=== PATIENT | male | born 1980 | race Caucasian/White ===

== ENCOUNTER 2018-09-22 07:49 | Outpatient (CLI) | payer OTHER ==
--- NOTE | 2018-09-22 09:47 | CT ---
CT LUMBAR SPINE WITHOUT CONTRAST: Date: 09/22/18 HISTORY: Low back pain x5 years. Forklift accident 5 years ago. Possible bilateral facet fracture at L5. FINDINGS: Five lumbar-type vertebral bodies. Lumbar spine vertebral body height is maintained. There is no frac ture. No spondylolisthesis. No spondylolysis. No retroperitoneal mass, lymphadenopathy, or hematoma. Symmetric attenuation of the psoas muscles. Vi sualized solid organs are unremarkable. Mild atherosclerosis of a nonaneurysmal aorta. Coronal reformatted images demonstrate appropriate alignment of the spinous processes and transverse process. SI joints are unremarkable. Limited evaluation of the contents of the central spinal canal and the neural foramina due to techniq ue. T11-T12 and T12-L1: No significant central canal stenosis or neural foraminal narrowing. L1-L2: No significant central canal stenosis or neural foraminal narrowing. L2-L3: No significant central canal stenosis or neural foraminal narrowing. L3-L4: There appears to be a generalized disc bulge which results in mild central canal stenosis. Ne ural foramina are patent. L4-L5: There is a generalized disc bulge with a central and right subarticular protrusion. There is presumed mass effect upon the traversing right L5 nerve root. Right neural foramen and left neural fo ramen are minimally narrowed. L5-S1: Minimal central disc protrusion. No significant central canal stenosis. Neural foramina are m ildly narrowed bilaterally. IMPRESSION: 1. No high grade central canal stenosis or high grade foraminal narrowing. 2. There is some mass effect upon the right subarticular zone at L4-L5 with presumed mass effect and obscuration traversing right L5 nerve root. Better interrogation with MRI may be beneficial. POS: MAIDA
== END 2018-09-22 07:50 | disposition home or self-care (01) ==
LOC: TBSIIMAG 07:49
PROVIDERS: ATTEND Neurological Surgery
DX: M54.5 Low back pain (principal); M48.8X6 Other specified spondylopathies, lumbar region
CPT/HCPCS: 72131

== ENCOUNTER 2018-12-12 12:40 | Outpatient (CLI) | payer OTHER ==
--- NOTE | 2018-12-12 13:42 | MRI ---
Lumbar spine MRI: 12/12/2018 COMPARISON: None HISTORY: Low back pain TECHNIQUE: Multiplanar multisequence MR imaging of the lumbar spine obtained without contrast FINDINGS: The sagittal STIR imaging demonstrates no focal area of osseous marrow edema. Lumbar vertebral body height and alignment appears normal within the lumbar spine. On the basis of 5 lumbar type vertebral bodies, the conus medullaris terminates at the L1 level. T12-L1: Unremarkable L1-2: Unremarkable L2-3: Unremarkable L3-4: Unremarkable L4-5: Mild disc space narrowing and disc desiccation. Small central disc protrusion. No central canal stenosis. Mild bilateral facet hypertrophy. No significant neural foraminal stenosis on either side. L5-S1: Unremarkable. Imaged retroperitoneal structures appear grossly unremarkable. IMPRESSION: Mild disc disease at L4-5. No significant central canal or neural foraminal stenosis.
== END 2018-12-12 12:41 | disposition home or self-care (01) ==
LOC: TBSIIMAG 12:40
PROVIDERS: ATTEND Neurological Surgery
DX: M54.5 Low back pain (principal); M51.16 Intervertebral disc disorders with radiculopathy, lumbar region
CPT/HCPCS: 72148

== ENCOUNTER 2021-04-04 12:27 | Emergency (ER) | payer OTHER, SELFPAY ==
[2021-04-04 14:56] LABS: #Lymphocytes 0.6 thou/uL (1.20-3.40); #Monocytes 0.2 thou/uL (0.11-0.59); #Neutrophils 7.8 thou/uL (1.40-6.50); %Basophils 0.1 % (0.0-1.0); %Eosinophils 0.1 % (0.0-10.0); %Lymphocytes 7.1 % (21.0-51.0); %Neutrophils 90.7 % (42.0-75.0); Hemoglobin 14.9 g/dL (14.0-18.0); Mean Corpuscular HGB CONC 34.1 g/dL (32.0-36.0); Mean Corpuscular Hemoglobin 30.7 pg (27.0-31.0); Mean Platelet Volume 8.1 fL (7.4-10.4); Platelet Count 145 thou/uL (130-400); RBC Distribution Width 11.6 % (11.5-14.5); Red Blood Cell (RBC) Count 4.83 mill/uL (4.70-6.10); White Blood Cell (WBC) Count 8.6 thou/uL (4.8-10.8)
[2021-04-04 15:23] LABS: ALT (SGPT) 23 U/L (8-55); AST (SGOT) 26 U/L (5-34); Albumin 3.7 g/dL (3.5-5.0); Alkaline Phosphatase 54 U/L (40-110); Anion Gap 15 mmol/L (10-20); BUN (Urea Nitrogen) 12 mg/dL (8.9-20.6); Bilirubin, Total 0.4 mg/dL (0.2-1.2); Calc. Creatinine Clearance 0 mL/min (70-130); Calcium 8.8 mg/dL (7.8-10.44); Carbon Dioxide 21 mmol/L (22-29); Chloride 98 mmol/L (98-107); Globulin 3.5 g/dL (2.4-3.5); Glucose 372 mg/dL (70-105); Potassium 4.1 mmol/L (3.5-5.1); Protein, Total 7.2 g/dL (6.0-8.3); Sodium 130 mmol/L (136-145)
[2021-04-04] MEDS ORDERED: Ketorolac Tromethamine 30 MG/ML VIAL ONE (16:13)
== END 2021-04-04 16:40 | disposition home or self-care (01) ==
LOC: ERS 12:27
DX: U07.1 COVID-19 (principal)
CPT/HCPCS: 71045; 80053; 84484; 85025; 93005; 96372; J1885

== ENCOUNTER 2021-04-10 01:34 | Inpatient (IN) | payer SELFPAY ==
[2021-04-10] MEDS ORDERED: Ondansetron PF 4 MG/2 ML Vial IVP PRN (05:30)
[2021-04-10] MEDS ORDERED: Ondansetron ODT 4 MG TAB SL PRN (05:30)
[2021-04-10] MEDS ORDERED: Acetaminophen 325 MG TAB PO PRN (05:30)
[2021-04-10] MEDS ORDERED: Senokot S 8.6-50 MG TAB PO PRN (10:10)
[2021-04-10] MEDS ORDERED: Dexamethasone 10 MG in Sodium Chloride 0.9% 50 ML IVPB SCH ×2 (10:16→21:00)
[2021-04-10] MEDS ORDERED: Dextrose 5% in Water 1,000 ML IV PRN (10:44)
[2021-04-10] MEDS ORDERED: Dextrose 50% Abboject 50 ML SYRINGE SLOW IVP PRN (10:44)
[2021-04-10] MEDS ORDERED: Dexamethasone 10 MG/ML VIAL SLOW IVP SCH (11:30)
[2021-04-10] MEDS ORDERED: Dexamethasone 10 MG/ML VIAL ONE (11:38)
[2021-04-10] MEDS ORDERED: BARICITINIB 2 MG TAB PO SCH (13:30)
[2021-04-10 15:22] VITALS: BMI 38.9
[2021-04-10] MEDS ORDERED: Enoxaparin Sodium 120 MG/0.8 ML SYRINGE SC SCH (15:45)
[2021-04-10] MEDS ORDERED: Enoxaparin Sodium 80 MG/0.8 ML SYRINGE ONE (16:46)
[2021-04-10] MEDS ORDERED: Enoxaparin Sodium 40 MG/0.4 ML SYRINGE ONE (16:46)
[2021-04-10] MEDS ORDERED: Ondansetron ODT 4 MG TAB PO PRN (17:18)
[2021-04-10] MEDS ORDERED: Lantus 1000 UNITS/10 ML VIAL SC SCH (21:00)
[2021-04-10] MEDS: Doxycycline 100 MG CAP PO SCH (21:23)
[2021-04-10] MEDS: Colchicine 0.6 MG TAB PO SCH (21:23)
[2021-04-10] MEDS: Dexamethasone 10 MG/ML VIAL SLOW IVP SCH (21:23)
[2021-04-10] MEDS: Enoxaparin Sodium 120 MG/0.8 ML SYRINGE SC SCH (21:24)
[2021-04-10] MEDS: Ivermectin 3 MG TAB PO SCH (21:25)
[2021-04-10] MEDS: HumaLOG 300 UNITS/3 ML VIAL SC PRN (21:43)
[2021-04-11] MEDS: HumaLOG 300 UNITS/3 ML VIAL SC PRN ×4 (05:31→20:32)
[2021-04-11 06:08] LABS: #Eosinphils 0.1 thou/uL (0.0-0.7); #Lymphocytes 0.5 thou/uL (1.20-3.40); #Monocytes 0.3 thou/uL (0.11-0.59); #Neutrophils 6.5 thou/uL (1.40-6.50); %Eosinophils 1.5 % (0.0-10.0); %Lymphocytes 6.7 % (21.0-51.0); %Monocytes 4.2 % (0.0-10.0); %Neutrophils 87.7 % (42.0-75.0); Hemoglobin 13.6 g/dL (14.0-18.0); Mean Corpuscular HGB CONC 35.8 g/dL (32.0-36.0); Mean Corpuscular Volume 89.6 fL (78.0-98.0); Mean Platelet Volume 8.2 fL (7.4-10.4); Platelet Count 151 thou/uL (130-400); RBC Distribution Width 11.7 % (11.5-14.5); Red Blood Cell (RBC) Count 4.26 mill/uL (4.70-6.10); White Blood Cell (WBC) Count 7.4 thou/uL (4.8-10.8)
[2021-04-11 06:32] LABS: ALT (SGPT) 17 U/L (8-55); AST (SGOT) 15 U/L (5-34); Albumin 3.2 g/dL (3.5-5.0); Alkaline Phosphatase 57 U/L (40-110); Anion Gap 15 mmol/L (10-20); BUN (Urea Nitrogen) 17 mg/dL (8.9-20.6); Bilirubin, Total 0.4 mg/dL (0.2-1.2); Calc. Creatinine Clearance 172 mL/min (70-130); Calcium 8.9 mg/dL (7.8-10.44); Carbon Dioxide 22 mmol/L (22-29); Cardiac Risk 7.9 (Less than 4.5); Chloride 101 mmol/L (98-107); Cholesterol 245 mg/dl (< 200 Desired); Globulin 3.6 g/dL (2.4-3.5); Glucose 519 mg/dL (70-105); HDL Cholesterol 31 mg/dL (>60 Neg Risk); LDL Cholesterol, Calculated 154 mg/dL; Potassium 4.7 mmol/L (3.5-5.1); Protein, Total 6.8 g/dL (6.0-8.3); Sodium 133 mmol/L (136-145); Triglycerides 300 mg/dL (Less than 150)
[2021-04-11] MEDS ORDERED: metFORMIN 500 MG TAB PO SCH (08:00)
[2021-04-11] MEDS ORDERED: Albuterol Sulfate 2.5 mg/3 ml Neb NEB PRN (08:32)
[2021-04-11] MEDS: Doxycycline 100 MG CAP PO SCH ×2 (08:47→20:20)
[2021-04-11] MEDS: Ascorbic Acid 500 mg Chewable Tablet PO SCH (08:47)
[2021-04-11] MEDS: Colchicine 0.6 MG TAB PO SCH ×2 (08:48→20:19)
[2021-04-11] MEDS: BARICITINIB 2 MG TAB PO SCH (08:48)
[2021-04-11] MEDS: Zinc Sulfate 220 MG CAP PO SCH (08:49)
[2021-04-11] MEDS: Ivermectin 3 MG TAB PO SCH ×2 (08:49→20:20)
[2021-04-11] MEDS: Enoxaparin Sodium 120 MG/0.8 ML SYRINGE SC SCH ×2 (08:53→20:20)
[2021-04-11] MEDS: Dexamethasone 10 MG/ML VIAL SLOW IVP SCH ×2 (08:53→20:20)
[2021-04-11] MEDS ORDERED: Pantoprazole 40 MG VIAL IVP SCH (09:00)
[2021-04-11] MEDS: Lantus 1000 UNITS/10 ML VIAL SC SCH (21:00)
[2021-04-12] MEDS: HumaLOG 300 UNITS/3 ML VIAL SC PRN ×4 (05:53→21:00)
[2021-04-12 06:37] LABS: #Eosinphils 0.1 thou/uL (0.0-0.7); #Lymphocytes 0.7 thou/uL (1.20-3.40); #Monocytes 0.5 thou/uL (0.11-0.59); %Basophils 0.3 % (0.0-1.0); %Eosinophils 0.7 % (0.0-10.0); %Lymphocytes 8.7 % (21.0-51.0); %Neutrophils 84.4 % (42.0-75.0); Hemoglobin 13.9 g/dL (14.0-18.0); Mean Corpuscular HGB CONC 35.4 g/dL (32.0-36.0); Mean Corpuscular Hemoglobin 31.8 pg (27.0-31.0); Mean Corpuscular Volume 89.8 fL (78.0-98.0); Mean Platelet Volume 8.9 fL (7.4-10.4); Platelet Count 160 thou/uL (130-400); RBC Distribution Width 11.7 % (11.5-14.5); Red Blood Cell (RBC) Count 4.38 mill/uL (4.70-6.10); White Blood Cell (WBC) Count 8.2 thou/uL (4.8-10.8)
[2021-04-12 06:58] LABS: ALT (SGPT) 16 U/L (8-55); AST (SGOT) 11 U/L (5-34); Albumin 3.2 g/dL (3.5-5.0); Alkaline Phosphatase 54 U/L (40-110); Anion Gap 15 mmol/L (10-20); BUN (Urea Nitrogen) 27 mg/dL (8.9-20.6); Bilirubin, Total 0.4 mg/dL (0.2-1.2); Calc. Creatinine Clearance 197 mL/min (70-130); Calcium 8.9 mg/dL (7.8-10.44); Carbon Dioxide 24 mmol/L (22-29); Chloride 101 mmol/L (98-107); Globulin 3.3 g/dL (2.4-3.5); Glucose 393 mg/dL (70-105); Potassium 4.6 mmol/L (3.5-5.1); Protein, Total 6.5 g/dL (6.0-8.3); Sodium 135 mmol/L (136-145)
[2021-04-12] MEDS: Colchicine 0.6 MG TAB PO SCH ×2 (08:50→20:58)
[2021-04-12] MEDS: Ivermectin 3 MG TAB PO SCH ×2 (08:50→20:59)
[2021-04-12] MEDS: Zinc Sulfate 220 MG CAP PO SCH (08:50)
[2021-04-12] MEDS: Doxycycline 100 MG CAP PO SCH ×2 (08:50→20:59)
[2021-04-12] MEDS: Ascorbic Acid 500 mg Chewable Tablet PO SCH (08:50)
[2021-04-12] MEDS: Dexamethasone 10 MG/ML VIAL SLOW IVP SCH ×2 (08:50→20:59)
[2021-04-12] MEDS: Enoxaparin Sodium 120 MG/0.8 ML SYRINGE SC SCH ×2 (08:50→20:59)
[2021-04-12] MEDS: BARICITINIB 2 MG TAB PO SCH (08:50)
[2021-04-12] MEDS ORDERED: Lantus 1000 UNITS/10 ML VIAL SC STA (16:03)
[2021-04-12] MEDS ORDERED: REMDESIVIR 200 MG in Sodium Chloride 0.9% 250 ML 210 ML IV SCH (16:45)
[2021-04-12] MEDS: Lantus 1000 UNITS/10 ML VIAL SC SCH (20:59)
[2021-04-13 06:05] LABS: #Lymphocytes 0.6 thou/uL (1.20-3.40); #Monocytes 0.5 thou/uL (0.11-0.59); #Neutrophils 7.2 thou/uL (1.40-6.50); %Eosinophils 0.3 % (0.0-10.0); %Lymphocytes 7.1 % (21.0-51.0); %Monocytes 5.9 % (0.0-10.0); %Neutrophils 86.7 % (42.0-75.0); Hemoglobin 14.1 g/dL (14.0-18.0); Mean Corpuscular Hemoglobin 31.2 pg (27.0-31.0); Mean Corpuscular Volume 89.2 fL (78.0-98.0); Platelet Count 165 thou/uL (130-400); RBC Distribution Width 11.6 % (11.5-14.5); Red Blood Cell (RBC) Count 4.52 mill/uL (4.70-6.10); White Blood Cell (WBC) Count 8.3 thou/uL (4.8-10.8)
[2021-04-13] MEDS: HumaLOG 300 UNITS/3 ML VIAL SC PRN ×4 (06:05→20:56)
[2021-04-13 06:28] LABS: Albumin 3.3 g/dL (3.5-5.0); Anion Gap 14 mmol/L (10-20); BUN (Urea Nitrogen) 21 mg/dL (8.9-20.6); Bilirubin, Total 0.4 mg/dL (0.2-1.2); Calc. Creatinine Clearance 188 mL/min (70-130); Carbon Dioxide 22 mmol/L (22-29); Chloride 100 mmol/L (98-107); Glucose 472 mg/dL (70-105); Potassium 4.4 mmol/L (3.5-5.1); Protein, Total 6.6 g/dL (6.0-8.3); Sodium 132 mmol/L (136-145)
[2021-04-13 06:29] LABS: ALT (SGPT) 15 U/L (8-55); AST (SGOT) 11 U/L (5-34); Alkaline Phosphatase 58 U/L (40-110); Globulin 3.3 g/dL (2.4-3.5)
[2021-04-13] MEDS ORDERED: Lantus 1000 UNITS/10 ML VIAL SC SCH (09:00)
[2021-04-13] MEDS: Doxycycline 100 MG CAP PO SCH ×2 (09:12→20:55)
[2021-04-13] MEDS: Zinc Sulfate 220 MG CAP PO SCH (09:12)
[2021-04-13] MEDS: Colchicine 0.6 MG TAB PO SCH ×2 (09:12→20:56)
[2021-04-13] MEDS: Ivermectin 3 MG TAB PO SCH ×2 (09:12→20:55)
[2021-04-13] MEDS: Apixaban 5 MG TAB PO SCH ×2 (09:12→20:56)
[2021-04-13] MEDS: BARICITINIB 2 MG TAB PO SCH (09:12)
[2021-04-13] MEDS: Ascorbic Acid 500 mg Chewable Tablet PO SCH (09:12)
[2021-04-13] MEDS: Dexamethasone 10 MG/ML VIAL SLOW IVP SCH (09:12)
[2021-04-13] MEDS: Lantus 1000 UNITS/10 ML VIAL SC SCH ×2 (09:13→20:56)
[2021-04-13] MEDS ORDERED: REMDESIVIR 100 MG in Sodium Chloride 0.9% 250 ML 230 ML IV SCH (16:45)
[2021-04-13] MEDS: Melatonin 3 MG TAB PO PRN (20:56)
[2021-04-14] MEDS: HumaLOG 300 UNITS/3 ML VIAL SC PRN ×4 (06:34→21:42)
[2021-04-14 07:27] LABS: #Eosinphils 0.1 thou/uL (0.0-0.7); #Lymphocytes 1.4 thou/uL (1.20-3.40); #Monocytes 0.6 thou/uL (0.11-0.59); #Neutrophils 5.9 thou/uL (1.40-6.50); %Basophils 0.1 % (0.0-1.0); %Lymphocytes 17.5 % (21.0-51.0); %Monocytes 7.4 % (0.0-10.0); %Neutrophils 74.1 % (42.0-75.0); Hemoglobin 13.7 g/dL (14.0-18.0); Mean Corpuscular HGB CONC 34.9 g/dL (32.0-36.0); Mean Corpuscular Hemoglobin 31.2 pg (27.0-31.0); Mean Corpuscular Volume 89.4 fL (78.0-98.0); Mean Platelet Volume 8.6 fL (7.4-10.4); Platelet Count 158 thou/uL (130-400); RBC Distribution Width 11.6 % (11.5-14.5); Red Blood Cell (RBC) Count 4.39 mill/uL (4.70-6.10); White Blood Cell (WBC) Count 7.9 thou/uL (4.8-10.8)
[2021-04-14 07:41] LABS: Anion Gap 14 mmol/L (10-20); BUN (Urea Nitrogen) 25 mg/dL (8.9-20.6); Calc. Creatinine Clearance 192 mL/min (70-130); Calcium 8.8 mg/dL (7.8-10.44); Carbon Dioxide 23 mmol/L (22-29); Chloride 101 mmol/L (98-107); Glucose 370 mg/dL (70-105); Potassium 4.1 mmol/L (3.5-5.1); Sodium 134 mmol/L (136-145)
[2021-04-14] MEDS: Doxycycline 100 MG CAP PO SCH ×2 (08:31→21:40)
[2021-04-14] MEDS: Apixaban 5 MG TAB PO SCH ×2 (08:31→21:40)
[2021-04-14] MEDS: Ascorbic Acid 500 mg Chewable Tablet PO SCH (08:31)
[2021-04-14] MEDS: Dexamethasone 10 MG/ML VIAL SLOW IVP SCH (08:31)
[2021-04-14] MEDS: Ivermectin 3 MG TAB PO SCH ×2 (08:32→21:42)
[2021-04-14] MEDS: Colchicine 0.6 MG TAB PO SCH ×3 (08:32→21:40)
[2021-04-14] MEDS: Zinc Sulfate 220 MG CAP PO SCH (08:32)
[2021-04-14] MEDS: BARICITINIB 2 MG TAB PO SCH (08:32)
[2021-04-14] MEDS: Lantus 1000 UNITS/10 ML VIAL SC SCH ×2 (08:33→21:40)
[2021-04-14] MEDS: metFORMIN 500 MG TAB PO SCH ×2 (15:28→21:40)
[2021-04-14] MEDS: glipiZIDE 5 MG TAB PO SCH (17:06)
[2021-04-14] MEDS ORDERED: HumuLIN 70/30 (300 UNITS/3 ML VIAL) SC SCH (21:00)
[2021-04-14] MEDS: Melatonin 3 MG TAB PO PRN (21:39)
[2021-04-15] MEDS: HumaLOG 300 UNITS/3 ML VIAL SC PRN ×3 (06:29→20:36)
[2021-04-15] MEDS: glipiZIDE 5 MG TAB PO SCH ×2 (06:30→15:10)
[2021-04-15 06:52] LABS: Anion Gap 13 mmol/L (10-20); BUN (Urea Nitrogen) 25 mg/dL (8.9-20.6); Calc. Creatinine Clearance 213 mL/min (70-130); Calcium 8.5 mg/dL (7.8-10.44); Carbon Dioxide 25 mmol/L (22-29); Chloride 104 mmol/L (98-107); Glucose 212 mg/dL (70-105); Potassium 3.7 mmol/L (3.5-5.1); Sodium 138 mmol/L (136-145)
[2021-04-15] MEDS: BARICITINIB 2 MG TAB PO SCH (08:32)
[2021-04-15] MEDS: Doxycycline 100 MG CAP PO SCH ×2 (08:32→20:34)
[2021-04-15] MEDS: Dexamethasone 10 MG/ML VIAL SLOW IVP SCH (08:32)
[2021-04-15] MEDS: Apixaban 5 MG TAB PO SCH ×2 (08:32→20:34)
[2021-04-15] MEDS: metFORMIN 500 MG TAB PO SCH ×3 (08:32→20:34)
[2021-04-15] MEDS: Colchicine 0.6 MG TAB PO SCH ×2 (08:33→20:34)
[2021-04-15] MEDS: Ascorbic Acid 500 mg Chewable Tablet PO SCH (08:33)
[2021-04-15] MEDS: Ivermectin 3 MG TAB PO SCH ×2 (08:33→20:34)
[2021-04-15] MEDS: Lantus 1000 UNITS/10 ML VIAL SC SCH ×2 (08:33→20:36)
[2021-04-15] MEDS: Zinc Sulfate 220 MG CAP PO SCH (08:33)
[2021-04-15] MEDS: Guaifenesin DM 100-10/5 ML UDCUP PO PRN (11:51)
[2021-04-15] MEDS: Melatonin 3 MG TAB PO PRN (22:18)
[2021-04-16] MEDS: HumaLOG 300 UNITS/3 ML VIAL SC PRN ×3 (05:55→17:14)
[2021-04-16] MEDS: Guaifenesin DM 100-10/5 ML UDCUP PO PRN ×5 (05:55→20:12)
[2021-04-16 07:27] LABS: Anion Gap 12 mmol/L (10-20); Calc. Creatinine Clearance 213 mL/min (70-130); Carbon Dioxide 28 mmol/L (22-29); Chloride 100 mmol/L (98-107); Glucose 184 mg/dL (70-105); Potassium 4.1 mmol/L (3.5-5.1); Sodium 136 mmol/L (136-145)
[2021-04-16 07:53] LABS: BUN (Urea Nitrogen) 22 mg/dL (8.9-20.6)
[2021-04-16] MEDS: Ivermectin 3 MG TAB PO SCH ×2 (08:06→19:56)
[2021-04-16] MEDS: Dexamethasone 10 MG/ML VIAL SLOW IVP SCH (08:06)
[2021-04-16] MEDS: Colchicine 0.6 MG TAB PO SCH ×2 (08:06→19:56)
[2021-04-16] MEDS: Ascorbic Acid 500 mg Chewable Tablet PO SCH (08:07)
[2021-04-16] MEDS: BARICITINIB 2 MG TAB PO SCH (08:07)
[2021-04-16] MEDS: glipiZIDE 5 MG TAB PO SCH ×2 (08:07→17:14)
[2021-04-16] MEDS: Doxycycline 100 MG CAP PO SCH ×2 (08:07→19:56)
[2021-04-16] MEDS: metFORMIN 500 MG TAB PO SCH ×2 (08:08→17:14)
[2021-04-16] MEDS: Zinc Sulfate 220 MG CAP PO SCH (08:09)
[2021-04-16] MEDS: Apixaban 5 MG TAB PO SCH ×2 (08:10→19:57)
[2021-04-16] MEDS: Lantus 1000 UNITS/10 ML VIAL SC SCH ×2 (08:11→19:55)
[2021-04-16] MEDS: Glimepiride 2 MG TAB PO SCH (08:13)
[2021-04-16] MEDS: Melatonin 3 MG TAB PO PRN (22:13)
[2021-04-17] MEDS: Guaifenesin DM 100-10/5 ML UDCUP PO PRN (04:43)
[2021-04-17] MEDS: HumaLOG 300 UNITS/3 ML VIAL SC PRN (04:43)
[2021-04-17 08:03] VITALS: TEMP 97.8
[2021-04-17] MEDS: Ivermectin 3 MG TAB PO SCH (09:07)
[2021-04-17] MEDS: Zinc Sulfate 220 MG CAP PO SCH (09:07)
[2021-04-17] MEDS: Doxycycline 100 MG CAP PO SCH (09:07)
[2021-04-17] MEDS: Colchicine 0.6 MG TAB PO SCH (09:07)
[2021-04-17] MEDS: glipiZIDE 5 MG TAB PO SCH (09:07)
[2021-04-17] MEDS: BARICITINIB 2 MG TAB PO SCH (09:07)
[2021-04-17] MEDS: Dexamethasone 10 MG/ML VIAL SLOW IVP SCH (09:07)
[2021-04-17] MEDS: Glimepiride 2 MG TAB PO SCH (09:07)
[2021-04-17] MEDS: Lantus 1000 UNITS/10 ML VIAL SC SCH (09:08)
[2021-04-17] MEDS: Ascorbic Acid 500 mg Chewable Tablet PO SCH (09:08)
[2021-04-17] MEDS: Apixaban 5 MG TAB PO SCH (09:08)
[2021-04-17] MEDS: metFORMIN 500 MG TAB PO SCH (09:08)
[2021-04-17 09:10] LABS: Anion Gap 13 mmol/L (10-20); BUN (Urea Nitrogen) 18 mg/dL (8.9-20.6); Calc. Creatinine Clearance 253 mL/min (70-130); Calcium 8.8 mg/dL (7.8-10.44); Carbon Dioxide 25 mmol/L (22-29); Chloride 102 mmol/L (98-107); Glucose 101 mg/dL (70-105); Potassium 3.8 mmol/L (3.5-5.1); Sodium 136 mmol/L (136-145)
[2021-04-17 12:05] VITALS: BP 104/64
== END 2021-04-17 16:05 | disposition home or self-care (01) | DRG 871 ==
LOC: ERS 01:34 → T4-B 02:25 → ERHOLD 02:41 → T4-B 18:40
PROVIDERS: ADMIT Student in an Organized Health Care Education/Training Program; ATTEND Internal Medicine
PROC: 5A0945A Assistance with Respiratory Ventilation, 24-96 Consecutive Hours, High Flow/Velocity Cannula (ICD-10-PCS; principal; 2021-04-10)
PROC: 8E0ZXY6 Isolation (ICD-10-PCS; 2021-04-10)
PROC: XW0DXM6 Introduction of Baricitinib into Mouth and Pharynx, External Approach, New Technology Group 6 (ICD-10-PCS; 2021-04-10)
PROC: 3E0333Z Introduction of Anti-inflammatory into Peripheral Vein, Percutaneous Approach (ICD-10-PCS; 2021-04-10)
DX: A41.89 Other specified sepsis (principal); U07.1 COVID-19; J12.82 Pneumonia due to coronavirus disease 2019; J96.01 Acute respiratory failure with hypoxia; I26.99 Other pulmonary embolism without acute cor pulmonale; E66.9 Obesity, unspecified; E11.65 Type 2 diabetes mellitus with hyperglycemia; J20.8 Acute bronchitis due to other specified organisms; T38.0X5A Adverse effect of glucocorticoids and synthetic analogues, initial encounter; Z79.899 Other long term (current) drug therapy; Z82.49 Family history of ischemic heart disease and other diseases of the circulatory system; Z83.3 Family history of diabetes mellitus; Z68.38 Body mass index [BMI] 38.0-38.9, adult
CPT/HCPCS: 36415; 36416; 71045; 71275; 80048; 80053; 80061; 82728; 85025; 85379; 86140; 93005; 93010; 94760; J1100; J1650; J1815

== ENCOUNTER 2021-04-20 18:57 | Emergency (ER) | payer SELFPAY ==
[2021-04-20] MEDS ORDERED: Cephalexin 250 MG CAP ONE (21:15)
== END 2021-04-20 21:45 | disposition home or self-care (01) ==
LOC: ERS 18:57
DX: T80.29XA Infection following other infusion, transfusion and therapeutic injection, initial encounter (principal); Z86.16 Personal history of COVID-19; E11.9 Type 2 diabetes mellitus without complications
CPT/HCPCS: 99283

== ENCOUNTER 2021-08-16 14:43 | Emergency (ER) | payer SELFPAY | END 2021-08-16 16:56 | disposition home or self-care (01) | LOC: ERS 14:43 | DX: S93.602A Unspecified sprain of left foot, initial encounter (principal); X50.9XXA Other and unspecified overexertion or strenuous movements or postures, initial encounter; E11.9 Type 2 diabetes mellitus without complications ==

== ENCOUNTER 2021-12-06 19:42 | Emergency (ER) | payer BC, SELFPAY ==
[2021-12-06] MEDS ORDERED: Boostrix 0.5 ML (Tdap) VIAL ONE (20:45)
[2021-12-06] MEDS ORDERED: Lidocaine 1% PF 5 ML VIAL ONE (20:45)
== END 2021-12-06 21:57 | disposition home or self-care (01) ==
LOC: ERS 19:42
DX: S61.412A Laceration without foreign body of left hand, initial encounter (principal); E11.9 Type 2 diabetes mellitus without complications; Z86.16 Personal history of COVID-19; W26.0XXA Contact with knife, initial encounter; Z23 Encounter for immunization
CPT/HCPCS: 12001; 90471; 90715

== ENCOUNTER 2023-04-02 09:36 | Outpatient (CLI) | payer BC | END 2023-04-02 09:37 | disposition home or self-care (01) | LOC: RAD 09:36 | PROVIDERS: ATTEND Internal Medicine | DX: R06.00 Dyspnea, unspecified (principal) | CPT/HCPCS: 71046 ==

== ENCOUNTER 2023-04-08 14:39 | Outpatient (CLI) | payer BC ==
[2023-04-08 16:37] LABS: #Eosinphils 0.1 10x3/uL (0.0-0.5); #Monocytes 0.6 10x3/uL (0.0-1.1); #Neutrophils 4.7 10x3/uL (1.5-8.4); %Basophils 0.4 % (0.0-2.0); %Eosinophils 1.3 % (0.0-6.0); %Lymphocytes 29.5 % (18.0-47.0); %Monocytes 7.2 % (0.0-10.0); %Neutrophils 60.8 % (40.0-75.0); Hematocrit 48.6 % (38.8-50.0); Hemoglobin 16.6 g/dL (13.5-17.5); Mean Corpuscular HGB CONC 34.2 g/dL (32.0-36.0); Mean Corpuscular Hemoglobin 31.2 pg (27.0-33.0); Mean Corpuscular Volume 91.4 fl (81.2-95.1); Mean Platelet Volume 11.1 fl (7.4-10.4); Platelet Count 217 10x3/uL (150-450); RBC Distribution Width 12.6 % (11.5-14.5); Red Blood Cell (RBC) Count 5.32 10x6/uL (4.32-5.72); White Blood Cell (WBC) Count 7.8 10x3/uL (3.5-10.5)
[2023-04-08 17:09] LABS: Anion Gap 20 mmol/L (10-20); BUN (Urea Nitrogen) 17 mg/dL (8.9-20.6); Calc. Creatinine Clearance 0 mL/min (70-130); Calcium 9.9 mg/dL (7.8-10.44); Carbon Dioxide 22 mmol/L (22-29); Chloride 101 mmol/L (98-107); Estimated GFR 110; Glucose 186 mg/dL (70-105); Potassium 4.5 mmol/L (3.5-5.1); Sodium 138 mmol/L (136-145)
== END 2023-04-08 14:40 | disposition home or self-care (01) ==
LOC: LABBT 14:39
PROVIDERS: ATTEND Orthopaedic Surgery
DX: Z01.818 Encounter for other preprocedural examination (principal); S43.432A Superior glenoid labrum lesion of left shoulder, initial encounter
CPT/HCPCS: 80048; 85025; 93005; 93010

== ENCOUNTER 2023-04-14 06:39 | Day surgery (SDC) | payer BC ==
[2023-04-08 15:25] VITALS: BMI 42.3
[2023-04-14] MEDS ORDERED: fentaNYL 50 mcg/mL 1 mL Vial ONE ×2 (08:33→11:11)
[2023-04-14] MEDS ORDERED: Midazolam HCl 2 mg/2 ml Vial ONE (08:33)
[2023-04-14] MEDS ORDERED: Ropivacaine 0.2% HCl/PF 20 ML ONE (08:34)
[2023-04-14] MEDS ORDERED: Ropivacaine 0.5% HCl/PF (150 MG/30 ML VIAL) ONE (08:34)
[2023-04-14] MEDS ORDERED: CEFAZOLIN 2 GM VIAL ONE (09:06)
[2023-04-14] MEDS ORDERED: Sodium Chloride 0.9% 100 ML ONE (09:06)
[2023-04-14] MEDS ORDERED: Dexamethasone 20 MG/5 ML VIAL ONE (09:10)
[2023-04-14] MEDS ORDERED: Glycopyrrolate 0.2 MG/ML 5 ML SYRINGE ONE (09:10)
[2023-04-14] MEDS ORDERED: NEOSTIGMINE 3 MG/3 ML SYR 3 MG/3 ML SYRINGE ONE (09:10)
[2023-04-14] MEDS ORDERED: PROPOFOL 200 MG/20 ML VIAL ONE (09:10)
[2023-04-14] MEDS ORDERED: Rocuronium Bromide 10 MG/ML (10ML VIAL) ONE (09:10)
[2023-04-14] MEDS ORDERED: PHENYLEPHRINE-NS 100 MCG/ML 10 ML SYRINGE ONE (09:10)
[2023-04-14] MEDS ORDERED: Ondansetron PF 4 MG/2 ML Vial ONE (09:10)
[2023-04-14] MEDS ORDERED: Lidocaine 1% PF 5 ML VIAL ONE (09:10)
[2023-04-14] MEDS ORDERED: fentaNYL PF 100 MCG/2 ML SYRINGE ONE (09:11)
[2023-04-14] MEDS ORDERED: fentaNYL 50 mcg/mL 1 mL Vial SLOW IVP PRN (09:29)
[2023-04-14] MEDS ORDERED: Ondansetron PF 4 MG/2 ML Vial IVP PRN (09:30)
[2023-04-14] MEDS ORDERED: HYDROcodone/Acetaminophen 10/325 mg Tablet PO PRN ×2 (09:30)
[2023-04-14] MEDS ORDERED: Zolpidem Tartrate 5 MG TAB PO PRN (09:30)
[2023-04-14] MEDS ORDERED: Promethazine HCl 25 MG/ML VIAL IM PRN (09:30)
[2023-04-14] MEDS ORDERED: traMADol HCl 50 MG TAB PO PRN ×2 (09:30)
[2023-04-14] MEDS ORDERED: Ropivacaine 0.2% 550 ML 550 ML NERVE BLCK SCH (09:30)
== END 2023-04-14 13:35 | disposition home or self-care (01) ==
LOC: SDC 06:39
PROVIDERS: ATTEND Orthopaedic Surgery
PROC: 0MB10ZZ Excision of Right Shoulder Bursa and Ligament, Open Approach (ICD-10-PCS; principal; 2023-04-14)
DX: S43.432A Superior glenoid labrum lesion of left shoulder, initial encounter (principal); E11.9 Type 2 diabetes mellitus without complications; E78.5 Hyperlipidemia, unspecified; E66.9 Obesity, unspecified; J90 Pleural effusion, not elsewhere classified; M51.26 Other intervertebral disc displacement, lumbar region; Z98.890 Other specified postprocedural states; Z88.5 Allergy status to narcotic agent; Z86.16 Personal history of COVID-19; Z68.41 Body mass index [BMI] 40.0-44.9, adult; Z79.899 Other long term (current) drug therapy
CPT/HCPCS: A4306; J1100; J2250; J2405; J2704; J2795; J3010; J3490

== ENCOUNTER 2023-10-06 22:53 | Emergency (ER) | payer BC | END 2023-10-06 23:35 | disposition home or self-care (01) | LOC: ERS 22:53 | DX: R05.1 Acute cough (principal); E11.9 Type 2 diabetes mellitus without complications | CPT/HCPCS: 71045 ==

== ENCOUNTER 2023-12-31 09:28 | Outpatient (CLI) | payer OTHER | END 2023-12-31 09:29 | disposition home or self-care (01) | LOC: MRI 09:28 | PROVIDERS: ATTEND Family Medicine | DX: S49.92XD Unspecified injury of left shoulder and upper arm, subsequent encounter (principal); S59.902D Unspecified injury of left elbow, subsequent encounter; S40.022D Contusion of left upper arm, subsequent encounter; S43.432D Superior glenoid labrum lesion of left shoulder, subsequent encounter; M25.812 Other specified joint disorders, left shoulder ==

== ENCOUNTER 2024-06-08 08:44 | Outpatient (CLI) | payer OTHER ==
[2024-06-08 10:21] LABS: #Basophils Less than 0.03 10x3/uL (0.0-0.2); %Basophils 0.3 % (0.0-1.0); %Eosinophils 1.4 % (0.0-10.0); %Lymphocytes 30.6 % (21.0-51.0); %Monocytes 7.3 % (0.0-10.0); %Neutrophils 59.8 % (42.0-75.0); Hematocrit 42.5 % (42.0-52.0); Hemoglobin 14.7 g/dL (14.0-18.0); Mean Corpuscular HGB CONC 34.6 g/dL (32.0-36.0); Mean Corpuscular Hemoglobin 31.7 pg (27.0-31.0); Mean Corpuscular Volume 91.6 fL (78.0-98.0); Mean Platelet Volume 10.7 fL (7.4-10.4); Platelet Count 196 10x3/uL (130-400); RBC Distribution Width 12.1 % (11.5-14.5); Red Blood Cell (RBC) Count 4.64 mill/uL (4.70-6.10)
[2024-06-08 10:34] LABS: Anion Gap 17 mmol/L (10-20); BUN (Urea Nitrogen) 19 mg/dL (8.9-20.6); Calc. Creatinine Clearance 0 mL/min (70-130); Calcium 9.1 mg/dL (7.8-10.44); Carbon Dioxide 19 mmol/L (22-29); Chloride 105 mmol/L (98-107); Estimated GFR 107; Glucose 248 mg/dL (70-105); Potassium 4.7 mmol/L (3.5-5.1); Sodium 136 mmol/L (136-145)
== END 2024-06-08 08:45 | disposition home or self-care (01) ==
LOC: LABBT 08:44
PROVIDERS: ATTEND Orthopaedic Surgery
DX: Z01.818 Encounter for other preprocedural examination (principal); M77.12 Lateral epicondylitis, left elbow
CPT/HCPCS: 80048; 85025; 93005; 93010

== ENCOUNTER 2024-06-30 13:27 | Outpatient (CLI) | payer BC, OTHER | END 2024-06-30 13:28 | disposition home or self-care (01) | LOC: SCSMRI 13:27 | PROVIDERS: ATTEND Orthopaedic Surgery | DX: M65.932 Unspecified synovitis and tenosynovitis, left forearm (principal) ==

== ENCOUNTER 2024-07-04 12:31 | Outpatient (CLI) | payer OTHER | END 2024-07-04 12:32 | disposition home or self-care (01) | LOC: SCSMRI 12:31 | PROVIDERS: ATTEND Orthopaedic Surgery | DX: M77.12 Lateral epicondylitis, left elbow (principal); M65.932 Unspecified synovitis and tenosynovitis, left forearm; S56.512A Strain of other extensor muscle, fascia and tendon at forearm level, left arm, initial encounter ==

== ENCOUNTER 2024-07-26 05:46 | Day surgery (SDC) | payer OTHER ==
[2024-07-21 14:13] VITALS: BMI 40.8
[2024-07-26] MEDS ORDERED: EPINEPHrine 1 MG/ML VIAL ONE (06:15)
[2024-07-26] MEDS ORDERED: Bupivacaine 0.25% HCL 30 ML VIAL ONE (06:15)
[2024-07-26] MEDS ORDERED: fentaNYL PF 100 MCG/2 ML SYRINGE ONE ×2 (06:45→08:38)
[2024-07-26] MEDS ORDERED: PROPOFOL 20 ML ONE ×2 (06:45→07:40)
[2024-07-26] MEDS ORDERED: Lidocaine 1% PF 5 ML VIAL ONE (06:46)
[2024-07-26] MEDS ORDERED: Rocuronium Bromide 10 MG/ML (10ML VIAL) ONE (06:46)
[2024-07-26] MEDS ORDERED: CEFAZOLIN 2 GM VIAL ONE (06:54)
[2024-07-26] MEDS ORDERED: fentaNYL 50 mcg/mL 1 mL Vial ONE ×2 (07:39→10:08)
[2024-07-26] MEDS ORDERED: Ketorolac Tromethamine 30 MG (1 mL) VIAL ONE (07:57)
[2024-07-26] MEDS ORDERED: SUGAMMADEX SODIUM 200 MG/2 ML VIAL ONE (07:57)
[2024-07-26] MEDS ORDERED: HYDROmorphone 0.5 MG/0.5 ML SYRINGE ONE ×3 (08:49→10:07)
== END 2024-07-26 11:18 | disposition home or self-care (01) ==
LOC: SDC 05:46
PROVIDERS: ATTEND Orthopaedic Surgery
PROC: 0LN60ZZ Release Left Lower Arm and Wrist Tendon, Open Approach (ICD-10-PCS; principal; 2024-07-26)
DX: M77.12 Lateral epicondylitis, left elbow (principal); M65.932 Unspecified synovitis and tenosynovitis, left forearm; E11.9 Type 2 diabetes mellitus without complications; E78.5 Hyperlipidemia, unspecified; E03.9 Hypothyroidism, unspecified; E66.9 Obesity, unspecified; Z68.41 Body mass index [BMI] 40.0-44.9, adult; Z88.5 Allergy status to narcotic agent; Z79.51 Long term (current) use of inhaled steroids; Z79.4 Long term (current) use of insulin; Z79.84 Long term (current) use of oral hypoglycemic drugs; Z79.1 Long term (current) use of non-steroidal anti-inflammatories (NSAID); Z79.899 Other long term (current) drug therapy
CPT/HCPCS: A6223; J0171; J0665; J1171; J1885; J2704; J3010

== ENCOUNTER 2024-08-28 14:12 | Outpatient (CLI) | payer BC ==
[2024-08-28 15:28] LABS: #Basophils 0.03 10x3/uL (0.0-0.2); %Basophils 0.4 % (0.0-1.0); %Eosinophils 1.5 % (0.0-10.0); %Lymphocytes 28.9 % (21.0-51.0); %Monocytes 6.6 % (0.0-10.0); %Neutrophils 62.3 % (42.0-75.0); Hematocrit 43.4 % (42.0-52.0); Mean Corpuscular HGB CONC 34.6 g/dL (32.0-36.0); Mean Corpuscular Hemoglobin 31.1 pg (27.0-31.0); Mean Platelet Volume 11.1 fL (7.4-10.4); Platelet Count 204 10x3/uL (130-400); RBC Distribution Width 12.2 % (11.5-14.5); Red Blood Cell (RBC) Count 4.82 mill/uL (4.70-6.10)
[2024-08-28 15:51] LABS: Anion Gap 14 mmol/L (10-20); BUN (Urea Nitrogen) 15 mg/dL (8.9-20.6); Calc. Creatinine Clearance 0 mL/min (70-130); Calcium 9.6 mg/dL (7.8-10.44); Carbon Dioxide 24 mmol/L (22-29); Chloride 102 mmol/L (98-107); Estimated GFR 108; Glucose 464 mg/dL (70-105); Potassium 4.5 mmol/L (3.5-5.1); Sodium 135 mmol/L (136-145)
== END 2024-08-28 14:13 | disposition home or self-care (01) ==
LOC: LABBT 14:12
PROVIDERS: ATTEND Orthopaedic Surgery
DX: Z01.812 Encounter for preprocedural laboratory examination (principal); S63.592A Other specified sprain of left wrist, initial encounter
CPT/HCPCS: 80048; 85025